=== PATIENT | female | born 1995 | race Caucasian/White ===

== ENCOUNTER 2017-11-01 12:30 | Emergency (ER) | payer BC, OTHER ==
[~2017-11-01 12:30] MED LIST: HYDR-4309 PO; SPIR25TA78 PO
--- NOTE | 2017-11-01 12:49 | ER Report ---
History and Physical Time Seen By MD: 12:40 Hx. of Stated Complaint: HEAD INJURY A WEEK AGO. DIAGNOSISED WITH A CONCUSSION. 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 Patient has 2 already diagnosis of your 3rd concussion with postconcussive symptoms patient has no neck pain has vomited 4 times earlier the day today denies any additional complaints noted REVIEW OF SYSTEMS: Respiratory: No cough, no dyspnea. Cardiovascular: No chest pain, no palpitations. Gastrointestinal: has vomiting, no abdominal pain. Musculoskeletal: No back pain. Remainder of the 14 system rev: Yes Allergies: Coded Allergies: grapefruit (Verified Allergy, Intermediate, RASH IN THROAT, 11/01/17) minocycline (Verified Allergy, Mild, FEVER, 11/01/17) acetaminophen (Verified Adverse Reaction, Mild, MUSCLE TREMORS, 11/01/17) oxycodone (Verified Adverse Reaction, Mild, MUSCLE TREMORS, 11/01/17) Home Meds Discontinued Reported Medications Spironolactone (SPIRONOLACTONE) 25 Mg Tablet, 15 MG PO DAILY, TAB 06/29/17 Discontinued Scripts Hydrocodone Bit/Acetaminophen (NORCO 5-325 TABLET) 1 Each Tablet, 1 EACH PO Q4H Y for PAIN, #12 TAB Prov:LAUREN FRANCO DO 06/29/17 Reviewed Nurses Notes: Yes Old Medical Records Reviewed: Yes Hx Substance Use Disorder: No Hx Alcohol Use: No Constitutional Vital Sign - Last 24 Hours 11/01/17 11/01/17 11/01/17 11/01/17 12:37 12:39 12:45 13:00 Temp 98.3 Pulse 99 82 ??? Resp 14 B/P (MAP) 121/103 (109) 121/103 103/81 (88) Pulse Ox 99 99 96 O2 Delivery Room Air 11/01/17 11/01/17 13:09 13:15 Pulse 87 B/P (MAP) 120/84 (96) Pulse Ox 99 Physical Exam General Appearance: The patient is alert, has no immediate need for airway protection and no current signs of toxicity. [ ] Eyes: Pupils equal and round no injection. Respiratory: Chest is non tender, lungs are clear to auscultation. Cardiac: regular rate and rhythm [ ] Gastrointestinal: Abdomen is soft and non tender, no masses, bowel sounds normal. Musculoskeletal: Neck: Neck is supple and non tender. Extremities have full range of motion and are non tender. Skin: No rashes or lesions. Neurologic examination GCS of 15 cranial nerves fully intact negative Romberg negative [id number] negative finger to nose test neurologically intact DIFFERENTIAL DIAGNOSIS: After history and physical exam differential diagnosis was considered for concussion postconcussive syndrome syndrome intracranial head bleed Medical Decision Making ED Course/Re-evaluation ED Course ED clinical course medical decision making a 22-year-old female this is her 3rd concussion head CT was negative for intracranial [place] bleed mass or lesion symptomatically she has postconcussive syndrome advised her to discontinue any and all activities that could potentially to or progressed to head trauma spoke to the physician for the [facility] advised him of her results and she'll follow -up with him accordingly Decision to Disposition Date: Nov 01, 2017 Decision to Disposition Time: 13:48 Depart Departure Latest Vital Signs Vital Signs Date Time Temp Pulse Resp B/P (MAP) Pulse Ox O2 Delivery O2 Flow Rate FiO2 11/01/17 13:15 87 99 11/01/17 13:09 120/84 (96) 11/01/17 12:39 98.3 14 Room Air Impression: Primary Impression: Concussion Condition: Improved Disposition: HOME OR SELF-CARE Referrals: CASSY JALLOH DO (PCP) 2 Days Patient Instructions: Concussion (DC) EDGARDO YUSUF MD Nov 01, 2017 12:49
[2017-11-01 13:09] VITALS: BP 120/84
--- NOTE | 2017-11-01 13:43 | RADIOLOGY IMAGING REPORT ---
FACILITY: [facility] PATIENT NAME: Zaria Maldonado : 1995 MR: [id number] V: [id number] EXAM DATE: ORDERING PHYSICIAN: EDGARDO YUSUF TECHNOLOGIST: Location[place] [facility] [place] Patient: Zaria Maldonado : 1995 Visit/Account:[id number] Date of Sevice: 11/01/2017 EXAMINATION: CT HEAD WITHOUT CONTRAST COMPARISON: 01/18/2017 HISTORY: Concussion symptoms. Head trauma one week ago. Headache and bloody nose. PROCEDURE: Noncontrast CT from the vertex through the skull base. One of the following dose optimizat ion techniques was utilized in the performance of this exam: Automated exposure control; adjustment o f the mA and/or kV according to the patient's size; or use of an iterative reconstruction technique. Specific details can be referenced in the facility's radiology CT exam operational policy. FINDINGS: Brain volume: Age-appropriate volume. Hemorrhage/extra-axial fluid: No intracranial hemorrhage or extra-axial fluid collection. Mass effect/midline shift/edema: None. Ischemia: Ybarra-white differentiation is preserved. Ventricles and basal cisterns: Ventricle size is within normal limits. Basal cisterns are open. Posterior fossa: Negative. Vessels: Negative. Calvarium, skull base, and scalp: Negative. Visualized sinuses and orbits: Visualized paranasal sinuses are clear. Visualized globes are unremark able. Limited visualization of the nose. IMPRESSION: Negative age-appropriate noncontrast head CT. Report Dictated By: Len Paris MD at 11/01/2017 1:35 PM Report E-Signed By: Len Paris MD at 11/01/2017 1:40 PM [id number]
== END 2017-11-01 13:58 | disposition home or self-care (01) ==
LOC: ER 12:42
DX: F07.81 Postconcussional syndrome (principal)
CPT/HCPCS: 70450; 99284

== ENCOUNTER → 2018-01-26 | Outpatient (REF) | payer BC ==
[2018-01-26 12:42] LABS: PLATELET COUNT, AUTOMATED 211 K/uL (150-450)
== END ==
PROVIDERS: ATTEND Nurse Practitioner Family
DX: R07.9 Chest pain, unspecified (principal)
CPT/HCPCS: 82040; 82247; 82310; 82374; 82435; 82565; 82947; 84075; 84132; 84155; 84295; 84450; 84460; 84484; 84520; 85025; 85379

== ENCOUNTER 2018-01-27 10:44 | Emergency (ER) | payer BC ==
--- NOTE | 2018-01-27 10:45 | ER Report ---
History and Physical Allergies: Coded Allergies: grapefruit (Verified Allergy, Intermediate, RASH IN THROAT, 01/27/18) minocycline (Verified Allergy, Mild, FEVER, 01/27/18) acetaminophen (Verified Adverse Reaction, Mild, MUSCLE TREMORS, 01/27/18) oxycodone (Verified Adverse Reaction, Mild, MUSCLE TREMORS, 01/27/18) Home Meds No Active Prescriptions or Reported Meds Hx Substance Use Disorder: No Hx Alcohol Use: No Constitutional Vital Sign - Last 24 Hours 01/27/18 10:49 Temp 98.3 Pulse 116 Resp 18 B/P (MAP) 121/78 Pulse Ox 96 Depart Departure Latest Vital Signs Vital Signs Date Time Temp Pulse Resp B/P (MAP) Pulse Ox O2 Delivery O2 Flow Rate FiO2 01/27/18 10:49 98.3 116 18 121/78 96 Referrals: CASSY JALLOH DO (PCP) New Scripts No Active Prescriptions or Reported Meds ASA ELLISON MD January 27, 2018 10:45
--- NOTE | 2018-01-27 11:18 | ER Report ---
History and Physical Time Seen By MD: 10:55 Hx. of Stated Complaint: PT REPORTS CHEST PAIN THAT STARTED YESTERDAY, EVERYTHING NEGATIVE AT URGENT CARE YESTERDAY- SENT BY DR. HAZEL TODAY BECAUSE PT IS STILL HAVEING CHEST PAIN HPI/ROS CHIEF COMPLAINT: Chest pain HISTORY OF PRESENT ILLNESS: Patient is a 22-year-old female accompanied by her roommate who presents the ED with complaint of chest pain that started yesterday. She states that the pain woke her up at 6 AM. She states that she felt short of breath. She was having pain with inspiration. Patient did take an albuterol inhaler puff with no real relief. She did go to urgent care yesterday after being told to go there by her athletic physician at [facility]. She states that she had multiple testing completed which was negative. She complained to her athletic physician at the [facility] she was continuing to have pain and told her to go to the emergency department for evaluation today. Patient states that in addition to the chest pain she has been having headache for the past 3 months. She states that she had a head injury 3 months ago at [facility] where she was dropped onto her head. She did have a CT scan completed of her head at the time which was normal. She has continued to have some intermittent pain as well as some numbness and tingling in her hands and feet. She states that she had noticed some swelling in both of her legs earlier in the month but this has resolved. She describes some achy type of pain in her legs bilaterally. Patient denies any history of blood clots. She has not had any other lung or heart history other than asthma. She denies any family history of blood clots or heart issues. Patient denies any palpitations. She is not noting any nausea or vomiting. She states that the pain is not worse with exertion but has really only noticed it with inspiration today. She is on the Mirena. REVIEW OF SYSTEMS: Constitutional: No fever, no chills. Eyes: No discharge. ENT: No sore throat. Cardiovascular: See history of present illness. Respiratory: See history of present illness. No cough. Gastrointestinal: No abdominal pain, no vomiting. Genitourinary: No hematuria. Musculoskeletal: No back pain. Skin: No rashes. Neurological: See history of present illness. Allergies: Coded Allergies: grapefruit (Verified Allergy, Intermediate, RASH IN THROAT, 01/27/18) minocycline (Verified Allergy, Mild, FEVER, 01/27/18) acetaminophen (Verified Adverse Reaction, Mild, MUSCLE TREMORS, 01/27/18) oxycodone (Verified Adverse Reaction, Mild, MUSCLE TREMORS, 01/27/18) Home Meds No Active Prescriptions or Reported Meds Reviewed Nurses Notes: Yes Old Medical Records Reviewed: Yes Hx Substance Use Disorder: No Hx Alcohol Use: No Constitutional Vital Sign - Last 24 Hours 01/27/18 01/27/18 01/27/18 01/27/18 10:47 10:49 10:59 11:00 Temp 98.3 Pulse 116 114 Resp 18 B/P (MAP) 121/78 (92) 121/78 115/74 (88) Pulse Ox 96 01/27/18 01/27/18 01/27/18 01/27/18 11:14 11:29 11:30 11:44 Pulse 99 100 102 Resp 19 20 10 B/P (MAP) 108/70 (83) Pulse Ox 98 95 96 01/27/18 01/27/18 01/27/18 01/27/18 12:00 12:05 12:20 12:30 Pulse 99 95 B/P (MAP) 109/78 (88) 112/74 (87) Pulse Ox 98 01/27/18 01/27/18 01/27/18 01/27/18 12:35 12:50 13:00 13:05 Pulse 94 93 91 B/P (MAP) 104/75 (85) Pulse Ox 99 94 97 01/27/18 01/27/18 01/27/18 01/27/18 13:20 13:30 13:35 13:39 Pulse 104 91 B/P (MAP) 95/79 (84) Pulse Ox 87 95 94 01/27/18 01/27/18 01/27/18 01/27/18 13:44 13:49 13:54 13:59 Pulse 87 87 96 92 Pulse Ox 94 97 94 95 01/27/18 01/27/18 01/27/18 01/27/18 14:00 14:29 14:30 14:44 Pulse 82 89 B/P (MAP) 105/75 (85) 106/70 (82) Pulse Ox 94 95 01/27/18 01/27/18 14:59 15:00 Pulse 83 B/P (MAP) 104/64 (77) Pulse Ox 95 Physical Exam General Appearance: The patient is alert, has no immediate need for airway protection and no signs of toxicity. Patient appears to be in no acute distress. Eyes: Pupils equal and round no pallor or injection. EOMs are full bilaterally. ENT, Mouth: Mucous membranes are moist. Respiratory: There are no retractions, lungs are clear to auscultation. Cardiovascular: Slightly tachycardic, regular rhythm. No murmurs, rubs, gallops appreciated. Gastrointestinal: Abdomen is soft and non tender, no masses, bowel sounds normal. Neurological: Cranial nerves II-12 intact. Normal Romberg. Normal finger to nose test bilaterally. Skin: Warm and dry, no rashes. Musculoskeletal: Neck is supple non tender. Extremities are nontender, nonswollen and have full range of motion. No edema noted of bilateral lower extremities. PT and DP pulses are 2+ with normal capillary refill. DIFFERENTIAL DIAGNOSIS: After history and physical exam differential diagnosis was considered for shortness of breath including but not limited to pulmonary infectious process, COPD, asthma, pulmonary embolus and congestive heart failure. Medical Decision Making Data Points Result Diagram: 01/27/18 1117 01/27/18 1117 Laboratory Hematology Test 01/27/18 11:17 Red Blood Count 4.50 M/uL (4.17-5.56) Mean Corpuscular Volume 88.9 fL (80.0-96.0) Mean Corpuscular Hemoglobin 30.4 pg (26.0-33.0) Mean Corpuscular Hemoglobin Concent 34.2 g/dL (32.0-36.0) Red Cell Distribution Width 14.4 % (11.5-14.5) Mean Platelet Volume 7.6 fL (7.2-11.1) Neutrophils (%) (Auto) 76.9 % (39.4-72.5) Lymphocytes (%) (Auto) 12.5 % (17.6-49.6) Monocytes (%) (Auto) 7.4 % (4.1-12.4) Eosinophils (%) (Auto) 2.8 % (0.4-6.7) Basophils (%) (Auto) 0.4 % (0.3-1.4) Nucleated RBC Relative Count (auto) 0.0 /100WBC Neutrophils # (Auto) 6.6 K/uL (2.0-7.4) Lymphocytes # (Auto) 1.1 K/uL (1.3-3.6) Monocytes # (Auto) 0.6 K/uL (0.3-1.0) Eosinophils # (Auto) 0.2 K/uL (0.0-0.5) Basophils # (Auto) 0.0 K/uL (0.0-0.1) Nucleated RBC Absolute Count (auto) 0.00 K/uL Erythrocyte Sedimentation Rate 12 mm/HOUR (0-20) Prothrombin Time 15.3 seconds (12.0-14.4) Prothromb Time International Ratio 1.20 Activated Partial Thromboplast Time 29 seconds (23-35) Sodium Level 139 mmol/L (137-145) Potassium Level 4.2 mmol/L (3.5-5.0) Chloride Level 102 mmol/L (98-107) Carbon Dioxide Level 25 mmol/L (22-31) Blood Urea Nitrogen 11 mg/dl (7-18) Creatinine 0.90 mg/dl (0.52-1.04) Glomerular Filtration Rate Calc > 60.0 Random Glucose 90 mg/dl (75-110) Calcium Level 9.4 mg/dl (8.4-10.2) Total Bilirubin 0.8 mg/dl (0.2-1.3) Aspartate Amino Transf (AST/SGOT) 18 U/L (0-35) Alanine Aminotransferase (ALT/SGPT) 15 U/L (0-56) Alkaline Phosphatase 46 U/L (0-126) Troponin I < 0.012 ng/ml C-Reactive Protein 6.6 mg/dl (<1.0) B-Type Natriuretic Peptide 32 pg/ml (0-100) Total Protein 6.7 gm/dl (6.3-8.2) Albumin 3.9 g/dl (3.5-5.0) Human Chorionic Gonadotropin, Qual Negative (NEGATIVE) Chemistry Test 01/27/18 11:17 White Blood Count 8.6 k/uL (4.5-11.0) Red Blood Count 4.50 M/uL (4.17-5.56) Hemoglobin 13.7 g/dL (12.0-16.0) Hematocrit 40.0 % (34.0-47.0) Mean Corpuscular Volume 88.9 fL (80.0-96.0) Mean Corpuscular Hemoglobin 30.4 pg (26.0-33.0) Mean Corpuscular Hemoglobin Concent 34.2 g/dL (32.0-36.0) Red Cell Distribution Width 14.4 % (11.5-14.5) Platelet Count 149 K/uL (150-450) Mean Platelet Volume 7.6 fL (7.2-11.1) Neutrophils (%) (Auto) 76.9 % (39.4-72.5) Lymphocytes (%) (Auto) 12.5 % (17.6-49.6) Monocytes (%) (Auto) 7.4 % (4.1-12.4) Eosinophils (%) (Auto) 2.8 % (0.4-6.7) Basophils (%) (Auto) 0.4 % (0.3-1.4) Nucleated RBC Relative Count (auto) 0.0 /100WBC Neutrophils # (Auto) 6.6 K/uL (2.0-7.4) Lymphocytes # (Auto) 1.1 K/uL (1.3-3.6) Monocytes # (Auto) 0.6 K/uL (0.3-1.0) Eosinophils # (Auto) 0.2 K/uL (0.0-0.5) Basophils # (Auto) 0.0 K/uL (0.0-0.1) Nucleated RBC Absolute Count (auto) 0.00 K/uL Erythrocyte Sedimentation Rate 12 mm/HOUR (0-20) Prothrombin Time 15.3 seconds (12.0-14.4) Prothromb Time International Ratio 1.20 Activated Partial Thromboplast Time 29 seconds (23-35) Glomerular Filtration Rate Calc > 60.0 Calcium Level 9.4 mg/dl (8.4-10.2) Total Bilirubin 0.8 mg/dl (0.2-1.3) Aspartate Amino Transf (AST/SGOT) 18 U/L (0-35) Alanine Aminotransferase (ALT/SGPT) 15 U/L (0-56) Alkaline Phosphatase 46 U/L (0-126) Troponin I < 0.012 ng/ml C-Reactive Protein 6.6 mg/dl (<1.0) B-Type Natriuretic Peptide 32 pg/ml (0-100) Total Protein 6.7 gm/dl (6.3-8.2) Albumin 3.9 g/dl (3.5-5.0) Human Chorionic Gonadotropin, Qual Negative (NEGATIVE) Coagulation Test 01/27/18 11:17 Prothrombin Time 15.3 seconds Prothromb Time International Ratio 1.20 Activated Partial Thromboplast Time 29 seconds EKG/Imaging EKG Interpretation 12 lead EK:49 Rhythm: Sinus tachycardia, rate 112 bpm Jenner: normal QRS: normal ST segments: There are some T-wave abnormalities including T-wave inversions in leads 2, 3, aVF. There is also some T-wave inversions in V1,V3, V4 , V5, V6. When compared to her EKG from yesterday at the urgent care it appears that the T-wave inversions in aVF, V3, V4, V5, V6 are new. She did have the T- wave inversions in leads 2 and 3. 12 lead EK:23 Rhythm: normal sinus rhythm, rate 94 bpm Jenner: normal QRS: normal ST segments: Again there is some T-wave inversion in leads 3, aVF, V1,V3, V4, V5, V6. Imaging CT Head: IMPRESSION: Normal head CT. No evidence of mass, acute ischemia or hemorrhage. Report Dictated By: Catalino Yanez MD at 01/27/2018 12:34 PM Report E-Signed By: Catalino Yanez MD at 01/27/2018 12:36 PM CTA Chest: IMPRESSION: 1. Negative CTA assessment for PE. 2. No significant acute finding in the chest. Spleen is only partially imaged but probably mildly prominent. Report Dictated By: Catalino Yanez MD at 01/27/2018 12:19 PM Report E-Signed By: Catalino Yanez MD at 01/27/2018 12:34 PM [facility]: no pericardial effusion, Mild MR and TR , EF 62% ED Course/Re-evaluation ED Course Will obtain labs, EKG, CTA of the chest as well as CT of the head. 01/27/2018 1:53:27 pm - discussed all labs, EKG, imaging with patient. Bruising appears to be normal except for the is slight T wave changes on her EKGs. Discussed patient with Dr. Darling, executive admin at [facility], who did evaluate the EKGs and advises to order a CRP and ESR an echocardiogram to look for pericarditis. He advises that she could be transferred for stress testing or outpatient basis if she declines the transfer. Discussed this with the patient. She does decline the transfer but would like to be set up an outpatient basis for this. Discussed patient with Dr. Hazel, physician at [facility], who will follow up with her regarding the stress testing and he is currently at office but will try to get his access to her previous EKGs there were completed with her pre-sports physicals. 01/27/2018 2:10:50 pm - see another callback from the executive admin at [facility], Dr. Darling, who advises to add on a CRP and ESR to her lab work as well as oral echocardiogram if possible. He is concerned that there is a possibility of some pericarditis. Discussed with patient was comfortable with the plan. We are able to order the echocardiogram but may not be able to have an official read. Decision to Disposition Date: January 27, 2018 Decision to Disposition Time: 15:43 Depart Departure Latest Vital Signs Vital Signs Date Time Temp Pulse Resp B/P (MAP) Pulse Ox O2 Delivery O2 Flow Rate FiO2 01/27/18 15:00 104/64 (77) 01/27/18 14:59 83 95 01/27/18 11:44 10 01/27/18 10:49 98.3 Impression: Primary Impression: Chest pain Additional Impression: Abnormal EKG Condition: Improved Disposition: HOME OR SELF-CARE Referrals: CASSY HAZEL DO (PCP) CARDIOLOGY New Scripts No Active Prescriptions or Reported Meds Patient Instructions: Chest Pain (ED), Pleurisy (ED) Additional Instructions: Stable hydrated. May take Tylenol for pain relief. Follow-up with radiology and her primary care provider in 2 days. Should have a stress test completed in 2-3 days. If having any worsening or concerning symptoms may return to the emergency department. MD Consult Note: Dr. Gaspar, ED Dr. Darling, Cardiology at [facility] Problem Qualifiers Primary Impression: Chest pain Chest pain type: unspecified Qualified Codes: R07.9 - Chest pain, unspecified YENIFER DHILLON PA-C January 27, 2018 11:18
[2018-01-27] MEDS ORDERED: IOPAMIDOL 76% 75 ML INFUS BTL 75 ML ONE (11:23)
--- NOTE | 2018-01-27 11:26 | EKG ---
FACILITY: [facility] PATIENT NAME: AXEL GREENE : [id number] MR: [id number] V: [id number] EXAM DATE: ORDERING PHYSICIAN: YENIFER DHILLON TECHNOLOGIST: DAVID Test Reason : CP Blood Pressure : / mmHG Vent. Rate : 112 BPM Atrial Rate : 112 BPM P-R Int : 168 ms QRS Dur : 078 ms QT Int : 346 ms P-R-T Axes : 044 074 -59 degrees QTc Int : 472 ms Sinus tachycardia Diffuse ST-T findings concerning for ischemia, but other possibilities exist Abnormal ECG No previous ECGs available Confirmed by LUIS RICE ([id number]) on 01/27/2018 2:05:20 PM Referred By: TERRA Confirmed By:LUIS RICE
[2018-01-27 11:34] LABS: PLATELET COUNT, AUTOMATED 149 K/uL (150-450)
[2018-01-27 11:43] LABS: INR 1.2
--- NOTE | 2018-01-27 12:29 | EKG ---
FACILITY: [facility] [place] PATIENT NAME: AEXL GREENE : [id number] MR: [id number] V: [id number] EXAM DATE: ORDERING PHYSICIAN: YENIFER DHILLON TECHNOLOGIST: DAVID Test Reason : REPEAT Blood Pressure : / mmHG Vent. Rate : 094 BPM Atrial Rate : 094 BPM P-R Int : 142 ms QRS Dur : 082 ms QT Int : 386 ms P-R-T Axes : 029 068 -01 degrees QTc Int : [address]-T findings persist, but less widespread and less pronounced Prolonged QT Abnormal ECG Confirmed by LUIS RICE ([id number]) on 01/27/2018 2:08:03 PM Referred By: TERRA Confirmed By:LUIS RICE
--- NOTE | 2018-01-27 12:38 | RADIOLOGY IMAGING REPORT ---
FACILITY: [facility] PATIENT NAME: Zaria Maldonado : 1995 MR: [id number] V: [id number] EXAM DATE: ORDERING PHYSICIAN: YENIFER DHILLON TECHNOLOGIST: Location: [facility] Patient: Zaria Maldonado : 1995 Visit/Account:[id number] Date of Sevice: 01/27/2018 EXAMINATION: CTA Chest With Contrast 01/27/2018 11:01 AM HISTORY: Chest pain, SOB, tachycardia, Mirena in place TECHNIQUE: Pulmonary embolus protocol - Thin-slice axial imaging of the chest was performed during maximal pulmonary arterial opacification with intravenous nonionic iodinated contrast. 3D coronal sla b MIPs and 2D reconstructions in the coronal and sagittal planes were performed to aid in pulmonary e mbolus detection. Executive Sales Manager images have been stored on PACS. Contrast: 75 mL of IV Isovue 370. One of the following dose optimization techniques was utilized in the performance of this exam: Autom ated exposure control; adjustment of the mA and/or kV according to the patient's size; or use of an i terative reconstruction technique. Specific details can be referenced in the facility's radiology C T exam operational policy. COMPARISON STUDIES: Chest x-ray on what I think is the same patient and her system dated 01/26/2018. FINDINGS: Angiographic Findings: Pulmonary arteries: There are no filling defects in the main, right, left, lobar, segmental or visual ized sub-segmental branches of the pulmonary arterial system Other vasculature: negative Additional non-angiographic findings: Lungs / pleura: negative Mediastinum / alie: negative Heart / pericardium: negative Musculoskeletal / Body wall: negative Lymph node assessment: negative Lower neck: negative Upper abdomen: Spleen is only partially imaged but measures 10.3 x 7.8 cm in the axial plane with an imaged craniocaudal dimension of over 7 cm. IMPRESSION: 1. Negative CTA assessment for PE. 2. No significant acute finding in the chest. Spleen is only partially imaged but probably mildly pro minent. Report Dictated By: Catalino Yanez MD at 01/27/2018 12:19 PM Report E-Signed By: Catalino Yanez MD at 01/27/2018 12:34 PM WSN:[id number]
--- NOTE | 2018-01-27 12:39 | RADIOLOGY IMAGING REPORT ---
FACILITY: [facility] [place] PATIENT NAME: Zaria Maldonado : 1995 MR: [id number] V: [id number] EXAM DATE: ORDERING PHYSICIAN: YENIFER DHILLON TECHNOLOGIST: Location: [facility] Patient: Zaria Maldonado : 1995 Visit/Account:[id number] Date of Sevice: 01/27/2018 EXAMINATION: CT Head Without Contrast 01/27/2018 11:01 AM HISTORY: headache, head injury 3months ago TECHNIQUE: Contiguous axial images were obtained from the skull base to the vertex without intraven ous contrast. One of the following dose optimization techniques was utilized in the performance of this exam: Autom ated exposure control; adjustment of the mA and/or kV according to the patient's size; or use of an i terative reconstruction technique. Specific details can be referenced in the facility's radiology C T exam operational policy. COMPARISON STUDIES: 11/01/2017. FINDINGS: Ventricles / sulci / fissures: negative Masses / hemorrhage / midline shift: negative White matter: negative Ybarra-white differentiation: negative Extra-axial spaces: negative Dural venous sinuses / arterial structures: negative Skull base / calvarium: negative Visualized mastoid air cells / paranasal sinuses: negative IMPRESSION: Normal head CT. No evidence of mass, acute ischemia or hemorrhage. Report Dictated By: Catalino Yanez MD at 01/27/2018 12:34 PM Report E-Signed By: Catalino Yanez MD at 01/27/2018 12:36 PM WSN:[id number]
[2018-01-27] MEDS ORDERED: KETOROLAC 15 MG/ML VIAL IVP ONE (14:05)
[2018-01-27 15:30] VITALS: BP 108/76
--- NOTE | 2018-01-29 19:14 | RADIOLOGY IMAGING REPORT ---
FACILITY: [facility] [place] PATIENT NAME: AXEL GREENE : [id number] MR: [id number] V: [id number] EXAM DATE: ORDERING PHYSICIAN: YENIFER DHILLON TECHNOLOGIST: Lorraine Jalloh EXAMINATION:TWO-DIMENSIONAL ECHOCARDIOGRAPH REASON:CHEST PAIN 2D Measurements (normal values in centimeters) LV endLV endRV endVent.LV PostAorticLeftPercent DiastolicSystolicDiastolicSeptumWallRootAtriumShortening (3.5-5.7)(0.9-2.6)(0.6-1.1)(0.6-1.1)(2.0-3.7)(1.9-4.0)(25-35%) [id number]% STROKE VOLUME: 49ml ESTIMATED EJECTION FRACTION: 62% PARASTERNAL LONG AXIS: Overall left ventricular systolic function appears to be normal. Chamber sizes also appear to be normal. Trace of mitral insufficiency is noted. Trace of tricuspid insufficiency is noted. The aortic valve appears to open normally. No wall motion abnormalities are noted. No pericardial effusion is noted. PARASTERNAL SHORT AXIS: Overall left ventricular function again appears to be within normal range. No wall motion abnormalities are noted. The aortic valve is trileaflet in configuration and appears to open normally. A trace of pulmonic insufficiency is noted. APICAL FOUR AND TWO CHAMBER: Normal left ventricular ejection fraction. Normal chamber sizes. Mitral valve and tricuspid valve both appear to open normally. There is a trace of tricuspid insufficiency and a trace of mitral insufficiency present. SUBCOSTAL VIEW: No pericardial effusion was noted. No atrioseptal or ventriculoseptal defects were appreciated. Doppler examination of the mitral valve in diastole reveals a normal pattern. The aortic valve and mitral valve area both measure within normal range of 2.4 and 5.1cm2 respectively. The left atrial and right atrial volumes are measured within normal ranges of 14 & 13 ml/m2. Tricuspid regurgitation Vmax measured 2.39m/2. Estimated right atrial pressure is 3mm Hg giving a total right ventricular pressure of 26mm Hg. OVERALL IMPRESSION: 1. Normal left ventricular ejection fraction of 62% with normal diastolic function. 2. Normal chamber sizes. 3. No wall motion abnormalities are noted. 4. No pericardial effusion is noted. 5. A trileaflet aortic valve with no abnormalities is noted. 6. A trace of mitral, tricuspid and pulmonic insufficiency with normal right ventricular systolic pressures of 26mm Hg. Normal right ventricular function is also noted. Dictated by: Carl Dia M.D. on 01/27/2018 at 20:47 Transcribed by: JOANNA on 01/29/2018 at 8:26 Approved by: Carl Dia M.D. on 01/29/2018 at 19:12 [facility]
== END 2018-01-27 15:49 | disposition home or self-care (01) ==
LOC: ER 10:48
DX: R07.89 Other chest pain (principal); R94.31 Abnormal electrocardiogram [ECG] [EKG]
CPT/HCPCS: 70450; 71275; 83880; 84484; 84703; 85025; 85610; 85651; 85730; 86140; 93005; 93306; 96374; 99284; J1885; Q9967; 82040; 82247; 82310; 82374; 82435; 82565; 82947; 84075; 84132; 84155; 84295; 84450; 84460; 84520

== ENCOUNTER → 2019-01-09 | Outpatient (REF) | payer BC ==
[~2019-01-09] MED LIST changes: -HYDR-4309 PO; +HYDR-653 PO; -SPIR25TA78 PO; +SPIR25TA80 PO
[2019-01-09 12:27] LABS: PLATELET COUNT, AUTOMATED 145 K/uL (150-450)
== END ==
PROVIDERS: ATTEND Nurse Practitioner Family
DX: R10.9 Unspecified abdominal pain (principal)
CPT/HCPCS: 82040; 82247; 82310; 82374; 82435; 82565; 82947; 84075; 84132; 84155; 84295; 84450; 84460; 84520; 85025; 85651; 86140

== ENCOUNTER → 2019-01-15 | Outpatient (REF) | payer BC, OTHER ==
[~2019-01-15] MED LIST changes: +ONDA4TAB9 PO; +TRAM-420 PO
[2019-01-15 16:14] LABS: PLATELET COUNT, AUTOMATED 208 K/uL (150-450)
== END ==
PROVIDERS: ATTEND Nurse Practitioner Family
DX: R10.9 Unspecified abdominal pain (principal)
CPT/HCPCS: 82040; 82150; 82247; 82310; 82374; 82435; 82565; 82947; 83690; 84075; 84132; 84155; 84295; 84450; 84460; 84520; 85025; 85651; 86677

== ENCOUNTER 2019-01-16 08:05 | Emergency (ER) | payer BC, OTHER ==
[~2019-01-16 08:05] MED LIST changes: -ONDA4TAB9 PO; -TRAM-420 PO
--- NOTE | 2019-01-16 08:10 | ER Report ---
History and Physical Time Seen By MD: 08:10 HPI/ROS CHIEF COMPLAINT: Abdominal pain, nausea HISTORY OF PRESENT ILLNESS: Patient is a 23-year-old female here with complaints of right-sided abdominal pain, but nausea since August. Patient was evaluated yesterday at urgent care at which time her labs were reportedly unremarkable. Patient is afebrile, hemodynamically stable, denies prior abdominal surgeries. REVIEW OF SYSTEMS: Constitutional: No fever, no chills. Eyes: No discharge. ENT: No sore throat. Cardiovascular: No chest pain, no palpitations. Respiratory: No cough, no shortness of breath. Gastrointestinal: + Right abdominal pain, + nausea Genitourinary: No hematuria. Musculoskeletal: No back pain. Skin: No rashes. Neurological: No headache. Allergies: Coded Allergies: grapefruit (Verified Allergy, Intermediate, RASH IN THROAT, 01/16/19) minocycline (Verified Allergy, Mild, FEVER, 01/16/19) acetaminophen (Verified Adverse Reaction, Mild, MUSCLE TREMORS, 01/16/19) oxycodone (Verified Adverse Reaction, Mild, MUSCLE TREMORS, 01/16/19) Home Meds Active Scripts Omeprazole (OMEPRAZOLE) 40 Mg Capsule.dr, 1 CAP PO QDAY for 30 Days, #30 CAP 1 Refill Prov:BE ALMEIDA DNP, [employer]-BC 01/18/19 Tramadol Hcl (TRAMADOL HCL) 50 Mg Tablet, 50 MG PO Q6H PRN for PAIN, #12 TAB 0 Refills Prov:MORENO,AMANDA S DO 01/16/19 Ondansetron 4 Mg Odt (ONDANSETRON 4 MG ODT) 4 Mg Tab.rapdis, 4 MG PO Q4-6H PRN for NAUSEA, #30 TAB Prov:MORENOIGNACIOAMANDA S DO 01/16/19 Hx Substance Use Disorder: No Hx Alcohol Use: No Constitutional Physical Exam General Appearance: The patient is alert, has no immediate need for airway protection and no signs of toxicity. Eyes: Pupils equal and round no pallor or injection. ENT, Mouth: Mucous membranes are moist. Respiratory: There are no retractions, lungs are clear to auscultation. Cardiovascular: Regular rate and rhythm. Gastrointestinal: + Mild right-sided abdominal pain, no rebound or guarding Neurological: [ ] Skin: Warm and dry, no rashes. Musculoskeletal: Neck is supple non tender. Extremities are nontender, nonswollen and have full range of motion. [ ] DIFFERENTIAL DIAGNOSIS: After history and physical exam differential diagnosis was considered for abdominal pain including but not limited to appendicitis, cholecystitis, gastritis and urinary tract infection. Medical Decision Making Data Points Laboratory Hematology Test 01/16/19 08:08 01/16/19 08:15 Urine Color Yellow Urine Clarity Clear Urine pH 6.0 pH (4.8-9.5) Urine Specific [place] 1.015 Urine Protein Negative mg/dL (NEGATIVE) Urine Glucose (UA) Negative mg/dL (NEGATIVE) Urine Ketones Negative mg/dL (NEGATIVE) Urine Blood Negative (NEGATIVE) Urine Nitrite Negative (NEGATIVE) Urine Bilirubin Negative (NEGATIVE) Urine Urobilinogen Negative mg/dL (0.2-1.9) Urine Leukocyte Esterase Negative (NEGATIVE) Urine RBC <1 /HPF (0-2/HPF) Urine WBC 1 /HPF (0-5/HPF) Urine Squamous Epithelial Cells Many /LPF (</=FEW) Urine Bacteria Negative /HPF (NONE-FEW) Urine Mucus None /HPF (NONE-FEW) Red Blood Count 4.78 M/uL (4.17-5.56) Mean Corpuscular Volume 91.9 fL (80.0-96.0) Mean Corpuscular Hemoglobin 30.4 pg (26.0-33.0) Mean Corpuscular Hemoglobin Concent 33.1 g/dL (32.0-36.0) Red Cell Distribution Width 14.3 % (11.5-14.5) Mean Platelet Volume 8.0 fL (7.2-11.1) Neutrophils (%) (Auto) 59.1 % (39.4-72.5) Lymphocytes (%) (Auto) 30.9 % (17.6-49.6) Monocytes (%) (Auto) 6.8 % (4.1-12.4) Eosinophils (%) (Auto) 2.6 % (0.4-6.7) Basophils (%) (Auto) 0.6 % (0.3-1.4) Nucleated RBC Relative Count (auto) 0.1 /100WBC Neutrophils # (Auto) 2.8 K/uL (2.0-7.4) Lymphocytes # (Auto) 1.5 K/uL (1.3-3.6) Monocytes # (Auto) 0.3 K/uL (0.3-1.0) Eosinophils # (Auto) 0.1 K/uL (0.0-0.5) Basophils # (Auto) 0.0 K/uL (0.0-0.1) Nucleated RBC Absolute Count (auto) 0.01 K/uL Peripheral Blood Smear No Y/N Sodium Level 138 mmol/L (137-145) Potassium Level 3.8 mmol/L (3.5-5.0) Chloride Level 108 mmol/L (98-107) Carbon Dioxide Level 24 mmol/L (22-31) Blood Urea Nitrogen 13 mg/dl (7-18) Creatinine 0.70 mg/dl (0.52-1.04) Glomerular Filtration Rate Calc > 60.0 Random Glucose 83 mg/dl (75-110) Calcium Level 8.9 mg/dl (8.4-10.2) Total Bilirubin 0.4 mg/dl (0.2-1.3) Aspartate Amino Transf (AST/SGOT) 23 U/L (0-35) Alanine Aminotransferase (ALT/SGPT) 18 U/L (0-56) Alkaline Phosphatase 40 U/L (0-126) C-Reactive Protein < 0.5 mg/dl (<1.0) Total Protein 7.1 g/dl (6.3-8.2) Albumin 4.3 g/dl (3.5-5.0) Lipase 1380 U/L (23-300) Human Chorionic Gonadotropin, Qual Negative (NEGATIVE) Chemistry Test 01/16/19 08:08 01/16/19 08:15 Urine Color Yellow Urine Clarity Clear Urine pH 6.0 pH (4.8-9.5) Urine Specific [place] 1.015 Urine Protein Negative mg/dL (NEGATIVE) Urine Glucose (UA) Negative mg/dL (NEGATIVE) Urine Ketones Negative mg/dL (NEGATIVE) Urine Blood Negative (NEGATIVE) Urine Nitrite Negative (NEGATIVE) Urine Bilirubin Negative (NEGATIVE) Urine Urobilinogen Negative mg/dL (0.2-1.9) Urine Leukocyte Esterase Negative (NEGATIVE) Urine RBC <1 /HPF (0-2/HPF) Urine WBC 1 /HPF (0-5/HPF) Urine Squamous Epithelial Cells Many /LPF (</=FEW) Urine Bacteria Negative /HPF (NONE-FEW) Urine Mucus None /HPF (NONE-FEW) White Blood Count 4.8 k/uL (4.5-11.0) Red Blood Count 4.78 M/uL (4.17-5.56) Hemoglobin 14.5 g/dL (12.0-16.0) Hematocrit 43.9 % (34.0-47.0) Mean Corpuscular Volume 91.9 fL (80.0-96.0) Mean Corpuscular Hemoglobin 30.4 pg (26.0-33.0) Mean Corpuscular Hemoglobin Concent 33.1 g/dL (32.0-36.0) Red Cell Distribution Width 14.3 % (11.5-14.5) Platelet Count 187 K/uL (150-450) Mean Platelet Volume 8.0 fL (7.2-11.1) Neutrophils (%) (Auto) 59.1 % (39.4-72.5) Lymphocytes (%) (Auto) 30.9 % (17.6-49.6) Monocytes (%) (Auto) 6.8 % (4.1-12.4) Eosinophils (%) (Auto) 2.6 % (0.4-6.7) Basophils (%) (Auto) 0.6 % (0.3-1.4) Nucleated RBC Relative Count (auto) 0.1 /100WBC Neutrophils # (Auto) 2.8 K/uL (2.0-7.4) Lymphocytes # (Auto) 1.5 K/uL (1.3-3.6) Monocytes # (Auto) 0.3 K/uL (0.3-1.0) Eosinophils # (Auto) 0.1 K/uL (0.0-0.5) Basophils # (Auto) 0.0 K/uL (0.0-0.1) Nucleated RBC Absolute Count (auto) 0.01 K/uL Peripheral Blood Smear No Y/N Glomerular Filtration Rate Calc > 60.0 Calcium Level 8.9 mg/dl (8.4-10.2) Total Bilirubin 0.4 mg/dl (0.2-1.3) Aspartate Amino Transf (AST/SGOT) 23 U/L (0-35) Alanine Aminotransferase (ALT/SGPT) 18 U/L (0-56) Alkaline Phosphatase 40 U/L (0-126) C-Reactive Protein < 0.5 mg/dl (<1.0) Total Protein 7.1 g/dl (6.3-8.2) Albumin 4.3 g/dl (3.5-5.0) Lipase 1380 U/L (23-300) Human Chorionic Gonadotropin, Qual Negative (NEGATIVE) Urinalysis Test 01/16/19 08:08 Urine Color Yellow Urine Clarity Clear Urine pH 6.0 pH (4.8-9.5) Urine Specific [place] 1.015 Urine Protein Negative mg/dL (NEGATIVE) Urine Glucose (UA) Negative mg/dL (NEGATIVE) Urine Ketones Negative mg/dL (NEGATIVE) Urine Blood Negative (NEGATIVE) Urine Nitrite Negative (NEGATIVE) Urine Bilirubin Negative (NEGATIVE) Urine Urobilinogen Negative mg/dL (0.2-1.9) Urine Leukocyte Esterase Negative (NEGATIVE) Urine RBC <1 /HPF (0-2/HPF) Urine WBC 1 /HPF (0-5/HPF) Urine Squamous Epithelial Cells Many /LPF (</=FEW) Urine Bacteria Negative /HPF (NONE-FEW) Urine Mucus None /HPF (NONE-FEW) EKG/Imaging Imaging PATIENT NAME: Zaria Maldonado : 1995 MR: [id number] V: [id number] EXAM DATE: ORDERING PHYSICIAN: AMANDA MORENO TECHNOLOGIST: Location: [facility] Patient: Zaria Maldonado : 1995 Visit/Account:[id number] Date of Sevice: 01/16/2019 Limited abdominal ultrasound of the right upper quadrant and of the right lower quadrant Indication: Right upper quadrant pain and right lower quadrant pain Comparison: None available Findings Liver is normal in size, contour, and echotexture and measures 16 cm in length. There is normal hepatopedal portal venous flow. Gallbladder wall thickness is 1.2 mm with no evidence of shadowing stone or sludge within the gallbladder lumen. Negative sonographic Moody's sign reported by the technologist. Common duct measures 2.7 mm in maximum diameter with no evidence of shadowing stone. Visualized pancreas is unremarkable Abdominal aorta and IVC are patent and unremarkable. The right kidney is normal in size, contour, and echotexture and measures 9.6 cm in length. There is a small 2.5 mm echogenic focus without shadowing within the mid right kidney possibly presenting a small nonshadowing nonobstructive stone. There is a tubular nondilated 4 mm structure right adnexal region possibly presenting the appendix with no increased vascularity or adjacent fluid. There is no adenopathy identified within right lower abdomen or other focal abnormality. IMPRESSION: 1. Unremarkable appearance of the gallbladder and no acute abnormality on this ultrasound of the right upper quadrant region. 2. No focal abnormality right lower abdomen. 3. Suggestion of small nonshadowing nonobstructive right renal stone PATIENT NAME: Zaria Maldonado : 1995 MR: [id number] V: [id number] EXAM DATE: ORDERING PHYSICIAN: AMANDA MORENO TECHNOLOGIST: Location: [facility] Patient: Zaria Maldonado : 1995 Visit/Account:[id number] Date of Sevice: 01/16/2019 Limited abdominal ultrasound of the right upper quadrant and of the right lower quadrant Indication: Right upper quadrant pain and right lower quadrant pain Comparison: None available Findings Liver is normal in size, contour, and echotexture and measures 16 cm in length. There is normal hepatopedal portal venous flow. Gallbladder wall thickness is 1.2 mm with no evidence of shadowing stone or sludge within the gallbladder lumen. Negative sonographic Moody's sign reported by the technologist. Common duct measures 2.7 mm in maximum diameter with no evidence of shadowing stone. Visualized pancreas is unremarkable Abdominal aorta and IVC are patent and unremarkable. The right kidney is normal in size, contour, and echotexture and measures 9.6 cm in length. There is a small 2.5 mm echogenic focus without shadowing within the mid right kidney possibly presenting a small nonshadowing nonobstructive stone. There is a tubular nondilated 4 mm structure right adnexal region possibly presenting the appendix with no increased vascularity or adjacent fluid. There is no adenopathy identified within right lower abdomen or other focal abnormality. IMPRESSION: 1. Unremarkable appearance of the gallbladder and no acute abnormality on this ultrasound of the right upper quadrant region. 2. No focal abnormality right lower abdomen. 3. Suggestion of small nonshadowing nonobstructive right renal stone ED Course/Re-evaluation ED Course Patient is a 23-year-old female here with complaints of nausea, right-sided abdominal pain which has been present since August. Patient complains of vague, intermittent right-sided abdominal pain without symptoms rebound or guarding. Patient was found to have pancreatitis without leukocytosis, elevated LFTs, elevated total bilirubin or other signs of infectious etiology or obstructive pathology. Patient is tolerating oral intake, is hemodynamically stable, afebrile at time of evaluation. Patient denied significant alcohol use, ultrasound imaging of the right abdomen and gallbladder showed no acute signs of appendicitis, cholecystitis or ductal dilatation. She was given IV fluid bolus, antiemetics, GI cocktail. CRP was unremarkable. Recommend outpatient follow-up with gastroenterology. Return precautions were provided. Decision to Disposition Date: Jan 16, 2019 Decision to Disposition Time: 09:39 Depart Departure Latest Vital Signs Impression: Primary Impression: Pancreatitis Condition: Improved Disposition: HOME OR SELF-CARE New Scripts Tramadol Hcl (TRAMADOL HCL) 50 Mg Tablet 50 MG PO Q6H PRN for PAIN, #12 TAB 0 Refills Prov: AMANDA MORENO DO 01/16/19 Ondansetron 4 Mg Odt (ONDANSETRON 4 MG ODT) 4 Mg Tab.rapdis 4 MG PO Q4-6H PRN for NAUSEA, #30 TAB Prov: AMANDA MORENO DO 01/16/19 Patient Instructions: Acute Abdominal Pain (DC), Pancreatitis (ED) Additional Instructions: Please continue to hydrate aggressively. You may take Zofran 1 tablet every 4-6 hours as needed for nausea and vomiting, tramadol 1 tablet every 6-8 hours as needed for breakthrough pain control, Tylenol or ibuprofen as needed for primary pain control. Please return promptly if you develop worsening pain, fevers, blood in the stools or urine, inability to keep down food or fluids. You were diagnosed with pancreatitis, please review the literature provided in your discharge instructions. Please follow-up with your primary care provider in the next 3-5 days. AMANDA MORENO DO Jan 16, 2019 08:10
[2019-01-16] MEDS ORDERED: LIDOCAINE 2% VISC SLN 15ML UDC PO ONE (08:25)
[2019-01-16] MEDS ORDERED: MAG HYD/AL HYD/SIMETH 30ML UDC PO ONE (08:25)
[2019-01-16] MEDS ORDERED: KETOROLAC 30 MG/ML VIAL IVP ONE (08:25)
[2019-01-16 08:31] LABS: PLATELET COUNT, AUTOMATED 187 K/uL (150-450)
[2019-01-16] MEDS ORDERED: NS(*) 0.9% 1000 ML BAG 1,000 ML IV ONE (08:50)
[2019-01-16 09:33] VITALS: BP 127/87
[2019-01-16] MEDS ORDERED: TRAM-420 PO (09:40)
[2019-01-16] MEDS ORDERED: ONDA4TAB9 PO (09:40)
--- NOTE | 2019-01-16 10:32 | RADIOLOGY IMAGING REPORT ---
FACILITY: [facility] [place] PATIENT NAME: Zaria Maldonado : 1995 MR: [id number] V: [id number] EXAM DATE: ORDERING PHYSICIAN: AMANDA MORENO TECHNOLOGIST: Location: [facility] [place] Patient: Zaria Maldonado : 1995 Visit/Account:[id number] Date of Sevice: 01/16/2019 Limited abdominal ultrasound of the right upper quadrant and of the right lower quadrant Indication: Right upper quadrant pain and right lower quadrant pain Comparison: None available Findings Liver is normal in size, contour, and echotexture and measures 16 cm in length. There is normal hepat opedal portal venous flow. Gallbladder wall thickness is 1.2 mm with no evidence of shadowing stone or sludge within the gallbla dder lumen. Negative sonographic Moody's sign reported by the technologist. Common duct measures 2.7 mm in maximum diameter with no evidence of shadowing stone. Visualized pancreas is unremarkable Abdominal aorta and IVC are patent and unremarkable. The right kidney is normal in size, contour, and echotexture and measures 9.6 cm in length. There is a small 2.5 mm echogenic focus without shadowing within the mid right kidney possibly presenting a s mall nonshadowing nonobstructive stone. There is a tubular nondilated 4 mm structure right adnexal region possibly presenting the appendix wi th no increased vascularity or adjacent fluid. There is no adenopathy identified within right lower a bdomen or other focal abnormality. IMPRESSION: 1. Unremarkable appearance of the gallbladder and no acute abnormality on this ultrasound of the righ t upper quadrant region. 2. No focal abnormality right lower abdomen. 3. Suggestion of small nonshadowing nonobstructive right renal stone Report Dictated By: Armin Carr MD at 01/16/2019 10:15 AM Report E-Signed By: Armin Carr MD at 01/16/2019 10:26 AM WSN:[id number]
--- NOTE | 2019-01-16 10:33 | RADIOLOGY IMAGING REPORT ---
FACILITY: [facility] [place] PATIENT NAME: Zaria Maldonado : 1995 MR: [id number] V: [id number] EXAM DATE: ORDERING PHYSICIAN: AMANDA MORENO TECHNOLOGIST: Location: [facility] Patient: Zaria Maldonado : 1995 Visit/Account:[id number] Date of Sevice: 01/16/2019 Limited abdominal ultrasound of the right upper quadrant and of the right lower quadrant Indication: Right upper quadrant pain and right lower quadrant pain Comparison: None available Findings Liver is normal in size, contour, and echotexture and measures 16 cm in length. There is normal hepat opedal portal venous flow. Gallbladder wall thickness is 1.2 mm with no evidence of shadowing stone or sludge within the gallbla dder lumen. Negative sonographic Moody's sign reported by the technologist. Common duct measures 2.7 mm in maximum diameter with no evidence of shadowing stone. Visualized pancreas is unremarkable Abdominal aorta and IVC are patent and unremarkable. The right kidney is normal in size, contour, and echotexture and measures 9.6 cm in length. There is a small 2.5 mm echogenic focus without shadowing within the mid right kidney possibly presenting a s mall nonshadowing nonobstructive stone. There is a tubular nondilated 4 mm structure right adnexal region possibly presenting the appendix wi th no increased vascularity or adjacent fluid. There is no adenopathy identified within right lower a bdomen or other focal abnormality. IMPRESSION: 1. Unremarkable appearance of the gallbladder and no acute abnormality on this ultrasound of the righ t upper quadrant region. 2. No focal abnormality right lower abdomen. 3. Suggestion of small nonshadowing nonobstructive right renal stone Report Dictated By: Armin Carr MD at 01/16/2019 10:15 AM Report E-Signed By: Armin Carr MD at 01/16/2019 10:26 AM WSN:[id number]
[2019-01-18] MEDS ORDERED: OMEP40CA48 PO (09:01)
== END 2019-01-16 10:10 | disposition home or self-care (01) ==
LOC: ER 08:12
DX: K85.90 Acute pancreatitis without necrosis or infection, unspecified (principal)
CPT/HCPCS: 76705; 81001; 83690; 84703; 85025; 86140; 96361; 96374; 99284; J1885; J7030; 82040; 82247; 82310; 82374; 82435; 82565; 82947; 84075; 84132; 84155; 84295; 84450; 84460; 84520

== ENCOUNTER → 2019-01-17 | Outpatient (CLI) | payer BC ==
[~2019-01-17] MED LIST changes: +OMEP40CA48 PO; +ONDA4TAB9 PO; +TRAM-420 PO
[2019-01-17 17:53] LABS: PLATELET COUNT, AUTOMATED 184 K/uL (150-450)
== END ==
LOC: LAB 17:40
PROVIDERS: ATTEND Nurse Practitioner Primary Care
DX: R10.9 Unspecified abdominal pain (principal)
CPT/HCPCS: 36415; 82040; 82150; 82247; 82310; 82374; 82435; 82565; 82947; 83690; 84075; 84132; 84155; 84295; 84450; 84460; 84520; 85025

== ENCOUNTER → 2019-01-17 | Outpatient (CLI) | payer BC ==
[~2019-01-17] MED LIST changes: +IOPAMIDOL 76% 150 ML INFUS BTL 150 ML ONE; +NS(*) 0.9% 50 ML BAG 50 ML ONE
--- NOTE | 2019-01-17 14:34 | RADIOLOGY IMAGING REPORT ---
FACILITY: [facility] PATIENT NAME: Zaria Maldonado : 1995 MR: [id number] V: [id number] EXAM DATE: [id number] ORDERING PHYSICIAN: BE ALMEIDA TECHNOLOGIST: Location: [facility] [place] Patient: Zaria Maldonado : 1995 Visit/Account:[id number] Date of Sevice: 01/16/2019 CT ABDOMEN WITH and without IV CONTRAST CLINICAL INFORMATION: Elevated lipase, abdominal pain, nausea and vomiting TECHNIQUE: The patient was initially scanned on January 16, 2019 between the arterial and portal venous phases following intravenous administration of 75 mL of Isovue-370. The patient returned October 272018 for the pancreas protocol given the clinical history of elevated lipase patient then receive d 122 mL of Isovue 370 intravenously and 16 ounces of water orally. The patient was scanned precontr ast menstruation and in the arterial and portal venous phase postcontrast administration. Axial CT i mages were obtained through the abdomen pre and post injection of nonionic iodinated intravenous cont rast per the pancreatic protocol. Reformatted coronal and sagittal images were also obtained.Dose Lo wering Technique One of the following dose optimization techniques was utilized in the performance of this exam: Autom ated exposure control; adjustment of the mA and/or kV according to the patient's size; or use of an i terative reconstruction technique. Specific details can be referenced in the facility's radiology C T exam operational policy. CONTRAST: As described above COMPARISON: CTA chest January 27, 2018. FINDINGS: Lower lung [place]: Limited views lower lung field are unremarkable. Liver: The right lobe of the liver is prominent measuring 18 cm in length this can be an anatomic arvind iant. There is mild periportal edema seen on the January 16, 2019 scan although was not appreciated on the following day Biliary: On the noncontrast study there is hyperdense contrast noted within the gallbladder from vica rious excretion of iodinated contrast.. There is minimal prominence of the central biliary radicles on the January 17, 2019 scan however not appreciated on January 16, 2019 scan. The common bile duct does not appear dilated nor does the gallbladder Pancreas: The pancreas appears unremarkable. There is no demonstration of a pancreatic mass pancreat ic duct dilatation or inflammatory change surrounding the pancreas. Spleen: Spleen measures 9.8 cm in length Adrenal glands: Unremarkable. Kidneys / retroperitoneum: No evidence of nephrolithiasis or hydronephrosis Bowel / peritoneum / mesenteries: The stomach is very distended with fluid as is the duodenal bulb an d second portion duodenum and proximal third portion the duodenum consistent with the water administe red as an oral contrast. There is abrupt narrowing of the third portion the duodenum as it passes be tween the aorta and the SMA. Lymph node assessment: No pathologic adenopathy identified. Vessels: No significant atherosclerotic calcification seen throughout a nonaneurysmal abdominal aorta and branches. Musculoskeletal / Body wall: No acute or aggressive osseous abnormality. IMPRESSION: 1. There is mild periportal edema seen on the May 18, 2019 scan of this can be seen with IV hydra tion. This was not present on January 17, 2019 scan There is minimal prominence of the central biliary radicals on January 17, 2019 scan although was not a ppreciated on January 16, 2019 scan. Common bile duct does not appear dilated nor does the gallbladder . If this is of clinical concern correlation with gallbladder ultrasound may be helpful Pancreas appears unremarkable The stomach, duodenal bulb and second portion the duodenum and proximal third portion duodenum are di stended with fluid consistent with the administration of water as an oral contrast. There is however abrupt narrowing of the third portion the duodenum as it passes between the aorta and the SMA. 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 Clinical co rrelation needed Results were called to BE ALMEIDA at 01/17/2019 2:30 PM. Report Dictated By: Elenita Weiss MD at 01/17/2019 1:45 PM Report E-Signed By: Elenita Weiss MD at 01/17/2019 2:30 PMWSN:[id number]
== END ==
LOC: RAD 01-16 14:35
PROVIDERS: ATTEND Nurse Practitioner Primary Care
DX: R19.8 Other specified symptoms and signs involving the digestive system and abdomen (principal); R74.8 Abnormal levels of other serum enzymes
CPT/HCPCS: 74170; 82150; Q9967; 74160